=== PATIENT | female | born 1970 | race African-American/Black ===

== ENCOUNTER 2017-11-29 19:51 | Emergency (ER) | payer BC ==
[~2017-11-29] VITALS: Ht 185.4 cm; Wt 100.0 kg
[2017-11-29 19:55] VITALS: TEMP 98.5
[2017-11-29] MEDS ORDERED: NAPROSYN500 MG PO (21:54)
[2017-11-29 22:20] VITALS: BP 140/81; PULSE 54
== END 2017-11-29 22:21 | disposition home or self-care (01) ==
LOC: COL.ER 19:51
DX: M65.4 Radial styloid tenosynovitis [de Quervain] (principal); G43.909 Migraine, unspecified, not intractable, without status migrainosus; Z88.6 Allergy status to analgesic agent

== ENCOUNTER → 2018-07-03 | Outpatient (CLI) | payer BC ==
[~2018-07-03] MED LIST: NAPROSYN500 MG PO
== END ==
LOC: COL.RAD 07:59
DX: M25.432 Effusion, left wrist (principal)